=== PATIENT | female | born 1960 | race Caucasian/White ===

== ENCOUNTER 2020-07-23 11:24 | Emergency (ER) | payer OTHER, SELFPAY ==
--- NOTE | 2020-07-23 11:48 | XR_ITS ---
PROCEDURE: XR WRIST LT MIN 3V CLINICAL INDICATION: PAIN COMPARISON: No exams were available for comparison FINDINGS: The distal radius ulna appear intact. The carpal bones all appear normal. There is no significant soft tissue swelling. The pronator quadratus fat pad is well seen which is a normal finding. IMPRESSION: No acute findings. Dictated by: Dr. Flo Melissa MD 07/23/2020 13:15 Dr. Flo Melissa MD in [place] 07/23/2020 13:15
--- NOTE | 2020-07-23 11:48 | XR_ITS ---
PROCEDURE: XR HAND LT MIN 3V CLINICAL INDICATION: PAIN COMPARISON: No exams were available for comparison FINDINGS: No fracture or dislocation. No lytic or blastic change. There is normal mineralization. The joint spaces are well-preserved. No significant degenerative/arthritic changes. No erosive changes evident. Other findings:None. IMPRESSION: No acute findings. Dictated by: Dr. Flo Melissa MD 07/23/2020 13:16 Dr. Flo Melissa MD in [place] 07/23/2020 13:16
[2020-07-23 11:51] VITALS: BP 142/82; PULSE 79; RESP 14; TEMP 36.2; O2SAT 96; BMI 30.9
--- NOTE | 2020-07-23 12:54 | HMH.EDUTC ---
[facility] Disposition Clinical Impression: Left hand tendonitis, Left hand pain, Left wrist pain Disposition: Home, Self-Care Condition on Discharge: Good Instructions: DI for Tendinitis, DI for Hand Pain Additional Instructions: Rest the extremity, Wear the wrist splint if it helps, Elevate the extremity as tolerated while you are resting. Avoid activities that cause your symptoms to worsen. Follow up with Dr. Gongora (orthopedics) if you continue to have this problem. I put in a referral but you need to call her office and schedule an appointment. Follow up with your regular doctor. GO TO THE ER FOR ANY WORSENING SYMPTOMS Prescriptions: Naproxen Sodium [Naproxen ER 375mg Tab] 375 mg PO BIDP PRN #20 tab PRN Reason: Moderate Pain Transmission Status: Received by [facility] Referrals: Irina Stephenson APRN [Primary Care Provider] - Richelle Gongora MD [Physician] - Time of Disposition: 13:01 Medical Decision Making - Medical Records Medical records reviewed: No: I reviewed the patient's medical records. - Deven Inquiry Pt receiving controlled substance: No Vital Signs: 07/23/20 11:51 07/23/20 13:10 Temperature 97.1 F L 98.1 F Temperature Source Tympanic Pulse Rate 80 Pulse Rate [Left] 79 Respiratory Rate 14 16 Blood Pressure 135/74 Blood Pressure [Right Arm] 142/82 H Blood Pressure Mean [Right Arm] 102 Blood Pressure Source [Right Arm] Automatic Cuff Blood Pressure Position [Right Arm] Sitting 02 Sat by Pulse Oximetry 96 Oxygen Delivery Method Room Air Orders (Tests/Meds): ED MEDICATIONS Discontinued Medications Generic Name Dose Route Start Last Admin Trade Name Freq PRN Reason Stop Dose Admin Ketorolac Tromethamine 30 mg 07/23/20 12:54 07/23/20 12:57 Ketorolac 60mg/2ml Vial IM 07/23/20 12:55 30 mg ONCE ONE Administration - Radiology Data #1 Image(s): Hand Image Reviewed: Yes I reviewed the patient's radiology image, Yes I have reviewed radiologist's interpretation Preliminary Findings: Normal/NAD [facility] HPI - General Stated complaint: AO [id number] left hand injured Time Seen by Provider: 07/23/20 12:00 Mode of Arrival: Ambulatory Source of Information: Patient Limitations: No Limitations Description of Symptoms (Recalled from Triage Doc. by RN): pt was splitting wood yesterday and now is having pain in her left hand and wrist. she is unable to straighten her fingers all the way. pt nail beds are discolored and her hand is reddened and slightly swollen. HEENT Symptoms (Recalled from RN notes): No Resp Symptoms (Recalled from RN notes): No Skin Symptoms (Recalled from RN notes): No MS Symptoms (Recalled from RN notes): Yes (left hand and wrist pain) Functional Status (Recalled from RN notes): na - History of Present Illness Provider Complaint: She c/o left hand pain since last night. She chopped a lot of wood yesterday. She denies any known injury, but it started hurting after she finished the wood. - Related Data Previous Rx's Medication Instructions Recorded Naproxen Sodium [Naproxen ER 375mg 375 mg PO BIDP PRN #20 tab 07/23/20 Tab] Allergies Allergy/AdvReac Type Severity Reaction Status Date / Time nickel [NICKEL] Allergy Unknown Verified 07/23/20 12:56 Penicillins [PENICILLINS] Allergy Unknown Verified 07/23/20 12:56 - Worker's Comp Is this a Worker's Comp case?: No [facility] History - Hepatitis A Screen Drug use history?: No High risk sexual behaviors?: No History of sexually transmitted infection?: No Currently employed?: No Childcare worker?: No Do you have indoor plumbing?: Yes Do you have electricity?: Yes Attestation statement:: This patient has been screened for Hepatitis A risk factors. I have reviewed the patient's past medical history: Yes Medical History: Reports:: Diabetes Mellitus Type 2 - Social History Smoking Status: Current every day smoker # Packs/Day (cigarettes): 1 Srinivasan
[2020-07-23 13:10] VITALS: BP 135/74; PULSE 80; RESP 16; TEMP 36.7
== END 2020-07-23 13:12 | disposition home or self-care (01) ==
LOC: ER 11:30 → UTC 11:32
PROVIDERS: Emergency Provider Nurse Practitioner Family; PCP Nurse Practitioner
DX: M77.8 Other enthesopathies, not elsewhere classified (principal); M70.842 Other soft tissue disorders related to use, overuse and pressure, left hand; X50.3XXA Overexertion from repetitive movements, initial encounter; F17.210 Nicotine dependence, cigarettes, uncomplicated
CPT/HCPCS: 29125; 73110; 73130; 96372; 99202; G0463